=== PATIENT | female | born 1975 | race Two or more races ===

== ENCOUNTER 2017-10-30 08:00 | Outpatient (CLI) | payer OTHER | END 2017-10-30 08:13 | disposition home or self-care (01) | LOC: LAB 08:00 | DX: C73 Malignant neoplasm of thyroid gland (principal); E89.0 Postprocedural hypothyroidism ==

== ENCOUNTER 2018-03-06 14:54 | Outpatient (CLI) | payer OTHER | END 2018-03-06 15:15 | disposition home or self-care (01) | LOC: SONOGRAMA 14:54 | DX: E04.1 Nontoxic single thyroid nodule (principal) ==

== ENCOUNTER 2018-03-11 07:03 | Outpatient (CLI) | payer OTHER | END 2018-03-11 07:17 | disposition home or self-care (01) | LOC: LAB 07:03 | DX: D64.89 Other specified anemias (principal); E11.9 Type 2 diabetes mellitus without complications; E78.2 Mixed hyperlipidemia; I10 Essential (primary) hypertension; E03.8 Other specified hypothyroidism ==

== ENCOUNTER 2018-03-31 09:02 | Outpatient (CLI) | payer OTHER | END 2018-03-31 09:09 | disposition home or self-care (01) | LOC: SONOGRAMA 09:02 | DX: E04.2 Nontoxic multinodular goiter (principal) ==

== ENCOUNTER → 2018-12-31 | Outpatient (CLI) | payer OTHER | END | disposition home or self-care (01) | LOC: SONOGRAMA 10:05 | DX: E04.1 Nontoxic single thyroid nodule (principal) ==

== ENCOUNTER 2019-01-27 08:19 | Outpatient (CLI) | payer OTHER ==
[~2019-01-27] VITALS: Ht 157.5 cm; Wt 93.0 kg
[2019-01-27] MEDS ORDERED: ZITHROMAX500 MG PO (10:35)
== END 2019-01-27 08:35 | disposition home or self-care (01) ==
LOC: OFIC 805 08:19
DX: R22.1 Localized swelling, mass and lump, neck (principal); R06.83 Snoring; G47.33 Obstructive sleep apnea (adult) (pediatric); E04.2 Nontoxic multinodular goiter; G44.221 Chronic tension-type headache, intractable

== ENCOUNTER 2019-05-04 07:26 | Outpatient (CLI) | payer OTHER ==
[~2019-05-04 07:26] MED LIST: ZITHROMAX500 MG PO
== END 2019-05-04 07:35 | disposition home or self-care (01) ==
LOC: LAB 07:26
DX: D64.89 Other specified anemias (principal); E11.9 Type 2 diabetes mellitus without complications; E78.2 Mixed hyperlipidemia; E03.8 Other specified hypothyroidism; I10 Essential (primary) hypertension

== ENCOUNTER 2019-08-12 09:26 | Outpatient (CLI) | payer OTHER | END 2019-08-12 09:30 | disposition home or self-care (01) | LOC: LAB 09:26 | DX: C73 Malignant neoplasm of thyroid gland (principal); E89.0 Postprocedural hypothyroidism ==

== ENCOUNTER 2019-10-29 14:17 | Outpatient (CLI) | payer OTHER | END 2019-10-29 15:35 | disposition home or self-care (01) | LOC: LAB 14:17 | DX: E89.0 Postprocedural hypothyroidism (principal); E04.1 Nontoxic single thyroid nodule; E55.9 Vitamin D deficiency, unspecified ==

== ENCOUNTER 2020-05-22 14:18 | Outpatient (CLI) | payer OTHER | END 2020-05-22 14:45 | disposition home or self-care (01) | LOC: MRI 14:18 | DX: M25.511 Pain in right shoulder (principal); M25.611 Stiffness of right shoulder, not elsewhere classified | CPT/HCPCS: 73221 ==

== ENCOUNTER → 2020-06-13 15:00 | Outpatient (CLI) | payer OTHER | END | disposition home or self-care (01) | LOC: PPH VACUNA 15:00 | DX: Z23 Encounter for immunization (principal) ==